=== PATIENT | female | born 1945 | race Caucasian/White ===

== ENCOUNTER 2019-08-05 05:37 | Day surgery (SDC) | payer MEDICARE, BC, OTHER ==
[~2019-08-05] VITALS: Ht 157.5 cm; Wt 85.7 kg
[~2019-08-05 05:37] MED LIST: ASPI81TA85 PO; BETI1SOL OU; BIOT50004 PO; CHOL100029 PO; DRAM50TA9 PO; FISH1000 PO; GLUC1CAP10 PO; META0.52 PO; METO25TA4 PO; MULTCAP PO; VAGI10TA VA; XALA0.007 OU
[2019-08-05] MEDS ORDERED: LIDOCAINE 1% MDV 20ML VIAL SQ PRN (06:00)
[2019-08-05] MEDS ORDERED: LR 1,000 ML IV ONE (06:00)
[2019-08-05] MEDS ORDERED: PROPOFOL 200 MG/20 ML VIAL As Ordered ONE (08:09)
[2019-08-05] MEDS ORDERED: LIDOCAINE 2% INJ 100 MG/5 ML SDV (FOR ANES.) As Ordered ONE (08:09)
[2019-08-05] MEDS ORDERED: fentaNYL 100 MCG/2 ML INJECTION (J3010) As Ordered ONE (08:16)
[2019-08-05] MEDS ORDERED: MIDAZOLAM INJ 2 MG/2 ML VIAL (J2250) As Ordered ONE (08:16)
[2019-08-05] MEDS ORDERED: METOCLOPRAMIDE INJ 10MG/2ML VIAL (J2765) As Ordered ONE (08:17)
[2019-08-05] MEDS ORDERED: dexameTHASONE 4 MG/ML 1ML VIAL (J1100) As Ordered ONE (08:17)
[2019-08-05] MEDS ORDERED: KETOROLAC 60 MG/2 ML VIAL (J1885) As Ordered ONE (10:00)
[2019-08-05] MEDS ORDERED: fentaNYL 100 MCG/2 ML INJECTION (J3010) IV PRN (10:45)
[2019-08-05] MEDS ORDERED: LR 1,000 ML IV SCH (10:45)
[2019-08-05] MEDS ORDERED: ONDANSETRON 4MG/2ML VIAL (J2405) IV PRN (10:45)
[2019-08-05] MEDS ORDERED: oxyCODONE 5MG TAB PO PRN (10:45)
[2019-08-05] MEDS ORDERED: METOCLOPRAMIDE INJ 10MG/2ML VIAL (J2765) IV PRN (10:45)
[2019-08-05] MEDS ORDERED: IBUPROFEN 600 MG TAB PO PRN (11:46)
[2019-08-05 12:25] VITALS: BP 180/72
--- NOTE | 2019-08-05 12:49 | RO ---
DATE OF PROCEDURE: 08/05/2019 PREOPERATIVE DIAGNOSES/INDICATION FOR SURGERY: Postmenopausal bleeding, abnormal sono. POSTOPERATIVE DIAGNOSES: Postmenopausal bleeding, abnormal sono, with a small polyp. PROCEDURE: Dilation and curettage (D and C), hysteroscopy, MyoSure resection of polyp. SURGEON: Toshia Connolly MD ADVERTISING PHOTOGRAPHER: None. ANESTHESIA: Laryngeal mask airway (LMA). BRIEF DESCRIPTION OF PROCEDURE AND FINDINGS: Gladis was brought to the operating room where sufficient LMA anesthesia was induced. She was prepped, draped and positioned in the usual sterile fashion with the [place] retractor used posteriorly to give a little visualization. The bladder emptied and the cervix grasped with a single-tooth tenaculum and then carefully dilated. There was marked atrophic changes, so some work was necessary for the dilation. We were then able to carefully place the MyoSure hysteroscope with which we visualized the endometrial cavity. Much of tissue was atrophic and thin consistent with the patient's age of 73, but at the left fundus a small polyp versus fibroid was noted and some minor scar tissue. We were able with a MyoSure light to resect this completely and send it for pathologic evaluation. We then also did curettage with very scant return. This is very much consistent with the atrophic thinned out appearance of the endometrium after the MyoSure resection. We then completed the procedure. Estimated blood loss was maybe 3 mL. Fluid replacement was crystalloid. Complications: None. CONDITION AND DISPOSITION: Gladis tolerated the procedure well and was recovering in the recovery room in good condition.
== END 2019-08-05 12:40 | disposition home or self-care (01) ==
LOC: M SDC 05:37
PROVIDERS: ATTEND Obstetrics & Gynecology
DX: N95.0 Postmenopausal bleeding (principal); N84.0 Polyp of corpus uteri; I10 Essential (primary) hypertension; K21.9 Gastro-esophageal reflux disease without esophagitis; E78.5 Hyperlipidemia, unspecified; Z79.82 Long term (current) use of aspirin; Z79.899 Other long term (current) drug therapy; Z88.0 Allergy status to penicillin; Z91.040 Latex allergy status; Z88.1 Allergy status to other antibiotic agents; Z88.8 Allergy status to other drugs, medicaments and biological substances
CPT/HCPCS: 58558; 88305; J1100; J1885; J2250; J2765; J3010